=== PATIENT | female | born 1960 | race Caucasian/White ===

== ENCOUNTER 2021-12-21 09:45 | Emergency (ER) | payer OTHER ==
[~2021-12-21] VITALS: Ht 172.7 cm; Wt 65.8 kg
[~2021-12-21 09:45] MED LIST: DILANTIN100 MG; TRILEPTAL300 MG
== END 2021-12-21 14:27 | disposition home or self-care (01) ==
LOC: ER 09:45
DX: B34.8 Other viral infections of unspecified site (principal); J40 Bronchitis, not specified as acute or chronic; G40.909 Epilepsy, unspecified, not intractable, without status epilepticus; E11.9 Type 2 diabetes mellitus without complications

== ENCOUNTER → 2022-03-31 | Emergency (ER) | payer OTHER ==
[~2022-03-31] VITALS: Ht 175.3 cm; Wt 65.8 kg
[~2022-03-31] MED LIST changes: +FLUCONAZOLE150 MG PO; +[UNRECOGNIZED DRUG - OTHER] TOP
== END | disposition left against medical advice (07) ==
LOC: ER 11:55
DX: M25.551 Pain in right hip (principal)

== ENCOUNTER 2022-04-01 08:38 | Emergency (ER) | payer OTHER ==
[~2022-04-01] VITALS: Ht 167.6 cm; Wt 68.0 kg
== END 2022-04-01 13:15 | disposition home or self-care (01) ==
LOC: ER 08:38
DX: M62.830 Muscle spasm of back (principal); Z88.0 Allergy status to penicillin; Z88.8 Allergy status to other drugs, medicaments and biological substances; G40.909 Epilepsy, unspecified, not intractable, without status epilepticus

== ENCOUNTER 2022-09-05 07:29 | Emergency (ER) | payer OTHER ==
[~2022-09-05] VITALS: Ht 167.6 cm; Wt 67.1 kg
[2022-09-05] MEDS ORDERED: DILANTIN100 MG PO (08:04)
== END 2022-09-05 10:08 | disposition home or self-care (01) ==
LOC: ER 07:29
DX: K04.7 Periapical abscess without sinus (principal); K08.89 Other specified disorders of teeth and supporting structures; Z88.0 Allergy status to penicillin

== ENCOUNTER 2023-01-04 08:30 | Emergency (ER) | payer OTHER ==
[~2023-01-04] VITALS: Ht 172.7 cm; Wt 65.8 kg
[~2023-01-04 08:30] MED LIST changes: +DILANTIN100 MG PO
== END 2023-01-04 11:23 | disposition home or self-care (01) ==
LOC: ER 08:30
DX: M54.50 Low back pain, unspecified (principal); Z88.0 Allergy status to penicillin; Z91.018 Allergy to other foods; G40.89 Other seizures; M25.562 Pain in left knee; Z88.2 Allergy status to sulfonamides

== ENCOUNTER 2023-01-08 20:51 | Emergency (ER) | payer OTHER ==
[~2023-01-08] VITALS: Ht 175.3 cm; Wt 63.5 kg
== END 2023-01-08 23:21 | disposition home or self-care (01) ==
LOC: ER 20:51
DX: S90.32XA Contusion of left foot, initial encounter (principal); X58.XXXA Exposure to other specified factors, initial encounter; Y93.9 Activity, unspecified; Y92.9 Unspecified place or not applicable; Y99.9 Unspecified external cause status; Z88.0 Allergy status to penicillin; Z91.018 Allergy to other foods

== ENCOUNTER 2023-01-14 17:08 | Emergency (ER) | payer OTHER ==
[~2023-01-14] VITALS: Ht 172.7 cm; Wt 65.8 kg
== END 2023-01-14 22:19 | disposition left against medical advice (07) ==
LOC: ER 17:08
DX: S01.122A Laceration with foreign body of left eyelid and periocular area, initial encounter (principal); W18.39XA Other fall on same level, initial encounter; Y93.9 Activity, unspecified; Y92.9 Unspecified place or not applicable; Z88.0 Allergy status to penicillin; Z91.018 Allergy to other foods; G40.802 Other epilepsy, not intractable, without status epilepticus; I87.2 Venous insufficiency (chronic) (peripheral); M19.90 Unspecified osteoarthritis, unspecified site

== ENCOUNTER 2023-01-19 11:28 | Emergency (ER) | payer OTHER ==
[~2023-01-19] VITALS: Ht 152.4 cm; Wt 64.0 kg
== END 2023-01-19 12:27 | disposition home or self-care (01) ==
LOC: ER 11:28
DX: L72.3 Sebaceous cyst (principal); Z88.0 Allergy status to penicillin; Z91.018 Allergy to other foods

== ENCOUNTER → 2023-01-21 | Emergency (ER) | payer OTHER ==
[~2023-01-21] VITALS: Ht 172.7 cm; Wt 64.0 kg
[~2023-01-21] MED LIST changes: +LEVOTHYROXINE25 MCG PO
== END | disposition left against medical advice (07) ==
LOC: ER 07:41
DX: Z53.21 Procedure and treatment not carried out due to patient leaving prior to being seen by health care provider (principal)

== ENCOUNTER → 2023-01-27 | Emergency (ER) | payer OTHER ==
[~2023-01-27] VITALS: Ht 172.7 cm; Wt 65.3 kg
== END | disposition left against medical advice (07) ==
LOC: ER 12:05
DX: Z53.21 Procedure and treatment not carried out due to patient leaving prior to being seen by health care provider (principal)

== ENCOUNTER → 2023-03-25 | Emergency (ER) | payer OTHER ==
[~2023-03-25] VITALS: Ht 172.7 cm; Wt 65.8 kg
== END | disposition home or self-care (01) ==
LOC: ER 10:30
DX: S01.312A Laceration without foreign body of left ear, initial encounter (principal); X58.XXXA Exposure to other specified factors, initial encounter; Y93.9 Activity, unspecified; Y92.9 Unspecified place or not applicable; Y99.9 Unspecified external cause status; E11.9 Type 2 diabetes mellitus without complications; M79.7 Fibromyalgia; Z91.014 Allergy to mammalian meats; Z88.0 Allergy status to penicillin; Z88.8 Allergy status to other drugs, medicaments and biological substances; Z91.018 Allergy to other foods

== ENCOUNTER 2023-04-22 09:32 | Emergency (ER) | payer OTHER ==
[~2023-04-22] VITALS: Ht 172.7 cm; Wt 67.1 kg
[2023-04-22] MEDS ORDERED: IBUprofen 100 MG/5 ML-120ML ML PO STA (10:06)
[2023-04-22] MEDS ORDERED: KETOROLAC TROMETHAMINE 30 MG VIAL IM STA (10:27)
== END 2023-04-22 11:43 | disposition home or self-care (01) ==
LOC: ER 09:32
DX: M25.552 Pain in left hip (principal); W19.XXXA Unspecified fall, initial encounter; Z88.0 Allergy status to penicillin; Z91.018 Allergy to other foods

== ENCOUNTER → 2023-12-29 | Emergency (ER) | payer OTHER | END | disposition left against medical advice (07) | LOC: ER 14:18 | DX: Z53.21 Procedure and treatment not carried out due to patient leaving prior to being seen by health care provider (principal) ==

== ENCOUNTER → 2024-03-19 | Emergency (ER) | payer OTHER ==
[~2024-03-19] MED LIST changes: +KETOROLAC TROMETHAMINE 60 MG VIAL IM ONE; +PROMETHAZINE HCL 50 MG/ML AMPUL IM ONE
== END | disposition left against medical advice (07) ==
LOC: ER 14:45
DX: Z53.21 Procedure and treatment not carried out due to patient leaving prior to being seen by health care provider (principal)

== ENCOUNTER 2024-03-20 01:46 | Emergency (ER) | payer OTHER ==
[~2024-03-20] VITALS: Ht 162.6 cm; Wt 79.4 kg
[~2024-03-20 01:46] MED LIST changes: -KETOROLAC TROMETHAMINE 60 MG VIAL IM ONE; -PROMETHAZINE HCL 50 MG/ML AMPUL IM ONE
[2024-03-20] MEDS ORDERED: KETOROLAC TROMETHAMINE 60 MG VIAL IM STA (02:51)
[2024-03-20] MEDS ORDERED: PROMETHAZINE HCL 50 MG/ML AMPUL IM STA (02:51)
[2024-03-20] MEDS ORDERED: 0.9 % SODIUM CHLORIDE 1,000 ML IV ONE (03:00)
[2024-03-20 04:08] LABS: ALBUMIN 3.7 gm/dL (3.4-5.0); BILIRUBIN TOTAL 0.72 mg/dL (0.3-1.2); CALCIUM 9.4 mg/dL (8.5-10.1); CREATININE SERUM 0.78 mg/dL (0.55-1.02); GFR 74.59; GLOBULINA 3.7 G/DL (2.4-3.5); POTASSIUM 4.04 mEq/L (3.5-5.1); TOTAL PROTEIN 7.4 gm/dL (6.4-8.2)
[2024-03-20 04:15] LABS: HEMATOCRIT 39.7 % (36.0-45.00); HEMOGLOBIN 13.7 g/dL (12.0-15.00); MEAN CELL VOLUME 98.3 fL (80.00-100.00); MEAN CORPUSCULAR HEMOGLOBIN 33.9 pg (27.00-32.0); MEAN CORPUSCULAR HGB CONC 34.5 g/dl (32.0-36.0); PLATELET COUNT 262 K/uL (150-450); RED BLOOD COUNT 4.04 M/uL (4.00-6.00); RED CELL DISTRIBUTION WIDTH 18.3 % (11.5-14.5)
[2024-03-20 09:05] LABS: PH,URINE 5.5 (5.0-8.0); URINE APPEARANCE Clear; URINE BILIRRUBIN Negative (NEGATIVE); URINE BLOOD Negative; URINE COLOR Yellow; URINE GLUCOSE Negative (NEGATIVE); URINE KETONE Negative (NEGATIVE); URINE LEUKOCYTE Negative; URINE NITRATE Negative; URINE PROTEIN Negative (NEGATIVE); URINE UROBILINOGEN 0.2 E.U./dl
[2024-03-20 09:11] LABS: URINE BACTERIA 280.1 uL (0.0-1933); URINE EPITHELIAL CELLS 22.7 uL (0.0-38.8); URINE RBC 11.1 uL (0.0-20.8); URINE WBC 3.4 uL (0.0-23.2)
[2024-03-20 09:22] LABS: URINE CAST 0.58 uL (0.0-1.40)
[2024-03-20 12:12] VITALS: BP 157/81; O2SAT 100
== END 2024-03-20 12:13 | disposition home or self-care (01) ==
LOC: ER 01:46
PROVIDERS: General Practice
DX: R10.2 Pelvic and perineal pain (principal); R19.00 Intra-abdominal and pelvic swelling, mass and lump, unspecified site; K80.20 Calculus of gallbladder without cholecystitis without obstruction; K76.0 Fatty (change of) liver, not elsewhere classified; Z88.8 Allergy status to other drugs, medicaments and biological substances; Z91.018 Allergy to other foods; Z88.0 Allergy status to penicillin; Z91.014 Allergy to mammalian meats